=== PATIENT | male | born 1960 | race African-American/Black ===

== ENCOUNTER 2019-05-08 15:31 | Inpatient (IN) | payer OTHER ==
[2019-05-08 16:58] VITALS: BMI 20.8
--- NOTE | 2019-05-08 20:25 | PN ---
[facility] Progress Note Note: Patient with medical history of asthma is seeking admission to detox from Alcohol. Patient is febrile and reports that he is coughing up yellowish sputum with intermittent chest pain. Patient is being transferred to ER for evaluation. Endorsed to Dr. Sigala
--- NOTE | 2019-05-09 02:01 | HP ---
CIWA Score - Admission Criteria OASAS Guidelines: Admission for Medically Managed Detox: Requires at least one of the followin. CIWA greater than 12 2. Seizures within the past 24 hours 3. Delirium tremens within the past 24 hours 4. Hallucinations within the past 24 hours 5. Acute intervention needed for co occurring medical disorder 6. Acute intervention needed for co occurring psychiatric disorder 7. Severe withdrawal that cannot be handled at a lower level of care (continued vomiting, continued diarrhea, abnormal vital signs) requiring intravenous medication and/or fluids 8. Admitting History and Physical - Smoking History Smoking history: Current every day smoker Have you smoked in the past 12 months: Yes Aproximately how many cigarettes per day: 10 - Alcohol/Substance Use Hx Alcohol Use: Yes Admission ROS [facility] - [facility] Chief Complaint: Seeking admission to Rehab. Allergies/Adverse Reactions: Allergies Allergy/AdvReac Type Severity Reaction Status Date / Time Penicillins Allergy Severe Hives Verified 05/08/19 16:48 History of Present Illness: 59 years old male with a long history of alcohol dependence ( since age 6 years ) is seeking admission to Rehab. Patient was last admitted to [facility] for the period 12/03/2013 - 12/30/2018. He reports that his last Rehab. was [facility] in [place]. He has medical history of asthma, GERD and reports psych. history of Bipolar disorder and depression. He reports suicide attempt in 2002, 2008 and denies suicidal ideation at this time. Patient had cough, was febrile and reported that he was coughing yellowish sputum. He stated that he did not take the flu shot. He was sent to ER for further evaluation. Influenza A and B rapid test was negative. Exam Limitations: No Limitations - Ebola screening Have you traveled outside of the country in the last 21 days: No (N) Have you had contact with anyone from an Ebola affected area: No Do you have a fever: No - Review of Systems Constitutional: No Symptoms Reported EENT: reports: No Symptoms Reported Respiratory: reports: No Symptoms reported Cardiac: reports: No Symptoms Reported GI: reports: No Symptoms Reported : reports: No Symptoms Reported Musculoskeletal: reports: No Symptoms Reported Integumentary: reports: No Symptoms Reported Neuro: reports: No Symptoms reported Endocrine: reports: No Symptoms Reported Hematology: reports: No Symptoms Reported Psychiatric: reports: Mood/Affect Appropiate, Orientated x3 Other Systems: Reviewed and Negative Patient History - Patient Medical History Hx Anemia: No Hx Asthma: Yes (Proventil inhaler) Hx Chronic Obstructive Pulmonary Disease (COPD): No Hx Cancer: No Hx Cardiac Disorders: No Hx Congestive Heart Failure: No Hx Hypertension: No Hx Hypercholesterolemia: No Hx Pacemaker: No HX Cerebrovascular Accident: No Hx Seizures: No Hx Dementia: No Hx Diabetes: No Hx Gastrointestinal Disorders: No Hx Liver Disease: No Hx Genitourinary Disorders: No Hx Sexually Transmitted Disorders: No Hx Renal Disease (ESRD): No Hx Thyroid Disease: No Hx Human Immunodeficiency Virus (HIV): No (neg 2 months ago) Hx Hepatitis C: No Hx Depression: Yes (bipolar) Hx Suicide Attempt: Yes (2002; tried to jump off bridge; hospitalized x 1 month) Hx Bipolar Disorder: Yes (diagnosed in 2002; has taken depakote, seroquel in the past) Hx Schizophrenia: No - Patient Surgical History Past Surgical History: Yes Hx Neurologic Surgery: No Hx Cataract Extraction: No Hx Cardiac Surgery: No Hx Lung Surgery: No Hx Abdominal Surgery: No Hx Appendectomy: No Hx Cholecystectomy: No Hx Genitourinary Surgery: No Hx Section: Yes Hx Orthopedic Surgery: No Other Surgical History: R wrist; work related injury; cut tendons, nerves and arteries; scar noted Anesthesia Reaction: No - PPD History Previous Implant?: Yes Documented Results: Negative w/o proof Implanted On Prior [facility] Admission?: Yes Date: 12/05/13 Results: 0mm PPD to be Administered?: Yes - Reproductive History Patient is a Female of Child Bearing Age (11 -55 yrs old): No (male) - Smoking Cessation Smoking history: Current every day smoker Have you smoked in the past 12 months: Yes Aproximately how many cigarettes per day: 10 Hx Chewing Tobacco Use: No Initiated information on smoking cessation: Yes 'Breaking Loose' booklet given: 05/09/19 - Substance & Tx. History Hx Alcohol Use: Yes Hx Substance Use: Yes Substance Use Type: Alcohol, Cocaine Hx [facility] - Substances abused Alcohol Substance route: Oral Frequency: Daily Amount used: liquor- 4 pints, beer- 1 six pack Age of first use: 5 Date of last use: 05/06/19 Crack Substance route: Smoking Frequency: 3-6 times per week Amount used: $60 worth Age of first use: 40 Date of last use: 05/06/19 Admission Physical Exam [facility] - Vital Signs Vital Signs: Vital Signs - 24 hr 05/08/19 05/08/19 16:43 17:23 Temperature 101.6 F H 101.6 F H Pulse Rate 94 H 94 H Respiratory 20 20 Rate Blood Pressure 142/80 142/80 - Physical General Appearance: Yes: Within Normal Limits HEENTM: Yes: Within Normal Limits Respiratory: Yes: Lungs Clear, Normal Breath Sounds, No Respiratory Distress Neck: Yes: Within Normal Limits Breast: Yes: Breast Exam Deferred Cardiology: Yes: Regular Rhythm, Regular Rate Abdominal: Yes: Normal Bowel Sounds Genitourinary: Yes: Within Normal Limits Back: Yes: Normal Inspection Musculoskeletal: Yes: Within Normal Limits Extremities: Yes: Normal Inspection, Normal Range of Motion Neurological: Yes: Within Normal Limits, Alert, Normal Mood/Affect Integumentary: Yes: Warm Lymphatic: Yes: Within Normal Limits - Diagnostic (1) Alcohol dependence Current Visit: No Status: Acute (2) Asthma Current Visit: No Status: Acute (3) Cocaine dependence Current Visit: No Status: Acute (4) GERD (gastroesophageal reflux disease) Current Visit: No Status: Acute (5) Nicotine dependence Current Visit: No Status: Acute Cleared for Admission [facility] - Detox or Rehab [facility] Level of Care: Observation Bed Claeared for Rehab Admission: Yes Breathalyzer - Breathalyzer Breathalyzer: 0 Urine Drug Screen - Test Device Lot number: [id number] Expiration date: 01/31/21 - Control Is test valid?: Yes - Results Drug screen NEGATIVE: No Urine drug screen results: MAIK-Cocaine Inpatient Rehab Admission - Rehab Decision to Admit Inpatient rehab admission?: Yes - Initial Determination Are CD services needed?: No Free of communicable disease: Yes Not in need of hospitalization: Yes - Rehab Admission Criteria Previous failed treatment: Yes Poor recovery environment: Yes Comorbidities: Yes Lacks judgement: No Patient is meeting Inpatient Rehab admission criteria:: Yes
[2019-05-09] MEDS ORDERED: MAGNESIUM HYDROX 2400MG/30ML ORAL SUSPENSION 30 ML CUP PO PRN (02:28)
[2019-05-09] MEDS ORDERED: MENTHOL/PHENOL 1 EACH UD MM PRN (02:28)
[2019-05-09] MEDS ORDERED: MAGNESIUM CITRATE 300 ML BOTTLE PO PRN (02:28)
[2019-05-09] MEDS ORDERED: NICOTINE POLACRILEX 2 MG GUM BUC PRN (02:28)
[2019-05-09] MEDS ORDERED: P-EPHED 60MG/TRIPROLIDI 2.5MG TABLET PO PRN (02:28)
[2019-05-09] MEDS ORDERED: TUBERCULIN PPD 5 TU/0.1ML VIAL ID ONE (03:27)
--- NOTE | 2019-05-09 08:18 | CONSULT ---
[facility] Psychiatric Consult - Data Date of interview: 05/09/19 Admission source: Self-referred Identifying data: Mr Mikel Rain is a 59 years old single Black male, father of 7 children, unemployed receiving SSD, domiciled admitted to this unit on 05/08/19 for inpatient rehabilitation for alcohol and cocaine Substance Abuse History: Reports history of alcohol and crack cocaine use. Refer to addiction counselor's summary for further information Medical History: Significant for bronchal asthma, GERD and surgery for tendon, nerve and artery repair right wrist. Smokes 10 cigarettes daily Psychiatric History: Reports that his first psychiatric contact was in 2002- 2003 for experiencing racing thought and anger. He saw an outpatient psychiatrist at the [facility], diagnosed with Bipolar Disorder and started on Depakote. Reports that he has been receiving outpatient psychiatric treatment since. Reports that his most recent psychiatric treatment was while at the [facility] inpatient substance abuse program in [place]. He was on Depakote 750 mg/hs and Trazadone 150 mg/hs. He said that he completed the program on 05/05/19 and relapsed soon after. Reports two previous psychiatric hospitalizations at [facility] in [place] for trying to jump off a bridge and another facility in [place](not sure it it was [facility]). At present, denies experiencing psychotic, manic or depressive symptoms, S/H ideations. However, reports sleeping poorly without medications. Physical/Sexual Abuse/Trauma History: Denies history of abuse as a child or DV relationship as an adult Mental Status Exam - Mental Status Exam Alert and Oriented to: Time, Place, Person Cognitive Function: Fair Patient Appearance: Disheveled Mood: Hopeful, Euthymic Affect: Appropriate Patient Behavior: Cooperative Speech Pattern: Clear Thought Process: Intact Hallucinations: Denies Suicidal Ideation: Denies Homicidal Ideation: Denies Insight/Judgement: Fair Sleep: Poorly Appetite: Good Muscle strength/Tone: Normal Gait/Station: Normal Psychiatric Findings - Problem List ([place] 1, 2,3) (1) Bipolar disorder Current Visit: Yes Status: Chronic (2) Substance-induced sleep disorder Current Visit: Yes Status: Acute (3) Alcohol dependence Current Visit: No Status: Acute (4) Cocaine dependence Current Visit: Yes Status: Acute (5) Nicotine dependence Current Visit: No Status: Chronic (6) Asthma Current Visit: No Status: Chronic (7) GERD (gastroesophageal reflux disease) Current Visit: No Status: Chronic - Initial Treatment Plan Initial Treatment Plan: 1) Continue Depakote 750 mg po HS and Trazadone 150 mg po HS. 2) Depakote serum level on 05/16/19. 3) Continue inpatient rehabilitation
[2019-05-09 09:58] LABS: HEMATOCRIT 45.8 % (35.4-49); HEMOGLOBIN 15.1 GM/dL (11.7-16.9); MCHC 33.1 g/dl (32.0-35.9); MEAN CELL VOLUME 87.8 fl (80-96); MEAN PLT VOLUME 8.5 fl (7.5-11.1); PLATELET COUNT 167 K/MM3 (134-434); RBC 5.22 M/mm3 (4.00-5.60); RDW 14.8 % (11.9-15.9); WHITE BLOOD COUNT 4.7 K/mm3 (4.0-10.0)
[2019-05-09 09:59] LABS: ALBUMIN 3.6 g/dl (3.4-5.0); BILIRUBIN,TOTAL 0.4 mg/dL (0.2-1); BLOOD UREA NITROGEN 14.5 mg/dL (7-18); CALCIUM 8.7 mg/dL (8.5-10.1); CREATININE 1.3 mg/dL (0.55-1.3); TOT PROT 7.2 g/dl (6.4-8.2)
--- NOTE | 2019-05-09 10:08 | EKG ---
Test Reason : Blood Pressure : / mmHG Vent. Rate : 062 BPM Atrial Rate : 062 BPM P-R Int : 138 ms QRS Dur : 084 ms QT Int : 422 ms P-R-T Axes : 078 052 043 degrees QTc Int : 428 ms NORMAL SINUS RHYTHM POSSIBLE LEFT ATRIAL ENLARGEMENT BORDERLINE ECG NO PREVIOUS ECGS AVAILABLE Confirmed by BAILEY CASTRO, NORMAN ([id number]) on 05/09/2019 10:08:35 AM Referred By: Minh Enriquez Confirmed By:NORMAN AVALOS MD
[2019-05-09] MEDS: PRENATAL VITAMINS W/ FOLIC ACID TABLET (FP) PO SCH (10:52)
[2019-05-09] MEDS: BUDESONIDE/FORMETEROL FUMARATE 80/4.5 mcg INHALER IH SCH ×2 (10:52→21:23)
[2019-05-09] MEDS: NICOTINE 14 MG/24 HOURS TOPICAL PATCH TD SCH (10:52)
[2019-05-09] MEDS: guaiFENesin 200 MG/10 ML 10 ML UNIT-DOSE CUPS PO PRN ×2 (10:55→16:54)
--- NOTE | 2019-05-09 11:32 | PN ---
[facility] Progress Note Note: PATIENT ADMITTED TO REHAB FOR ALCOHOL/COCAINE DEPENDENCE. CLEARED FROM [facility] AFTER BEING SENT FOR EVALUATION OF FEVER. INFLUENZA/CXR NEGATIVE. UA PENDING. CBC NORMAL. Vital Signs Temperature 98.3 F 05/09/19 07:33 Pulse Rate 72 05/09/19 07:33 Respiratory Rate 18 05/09/19 07:33 Blood Pressure 119/74 05/09/19 07:33 O2 Sat by Pulse Oximetry (%) Laboratory Tests 05/09/19 05/09/19 05/09/19 08:12 08:12 08:12 WBC 4.7 RBC 5.22 Hgb 15.1 Hct 45.8 MCV 87.8 MCH 29.0 MCHC 33.1 RDW 14.8 Plt Count 167 D MPV 8.5 Sodium 136 Potassium 4.0 Chloride 100 Carbon Dioxide 27 Anion Gap 9 BUN 14.5 Creatinine 1.3 Est GFR (CKD-EPI)AfAm 68.25 Est GFR (CKD-EPI)NonAf 58.89 Random Glucose 231 H Calcium 8.7 Total Bilirubin 0.4 AST 62 H ALT 53 Alkaline Phosphatase 62 Total Protein 7.2 Albumin 3.6 RPR Titer Nonreactive ROS: DENIES CHEST PAIN, SOB, COUGH AND FEVER/CHILLS PE: ALERT AND ORIENTED X 3 SKIN WARM AND DRY CAR S1S2 RESP CTA BL EXT FULL ROM, AMB AD ANANTH A/P: ETOH/MAIK DEPENDENCE CONTINUE REHAB SERVICES PSYCH EVALUATION PENDING MONITOR CLINICALLY
[2019-05-09 17:13] LABS: EPI CELLS 0.3 /HPF (0-5/HPF); HYALINE CASTS 1 /lpf (0-8); PH,URINE 5.5 (5.0-8.0); URINE APPEARANCE CLOUDY; URINE BACTERIA 2.2 /hpf (NEGATIVE); URINE BILIRUBIN NEGATIVE (NEGATIVE); URINE COLOR YELLOW; URINE GLUCOSE (UA) NEGATIVE (NEGATIVE); URINE KETONE NEGATIVE (NEGATIVE); URINE LEUK ESTERASE NEGATIVE (NEGATIVE); URINE NITRITE NEGATIVE (NEGATIVE); URINE PROTEIN TRACE (NEGATIVE); URINE RBC 5 /hpf (0-4); URINE UROBILINOGEN 0.2 mg/dL (0.2-1.0); URINE WBC 1 /hpf (0-5)
[2019-05-09] MEDS: THIAMINE HCL 100 MG TABLET (FP) PO SCH (21:23)
[2019-05-09] MEDS ORDERED: DIVALPROEX SODIUM 250 MG TABLET E.C. ONE (21:24)
[2019-05-09] MEDS ORDERED: DIVALPROEX SODIUM 500 MG TABLET E.C. ONE (21:24)
[2019-05-09] MEDS: DIVALPROEX 500 MG, DIVALPROEX 250 MG PO SCH (21:25)
[2019-05-09] MEDS: MELATONIN 5 MG TABLETS PO PRN (21:25)
[2019-05-09] MEDS: traZODone HCL 50 MG TABLET (FP) PO SCH (21:25)
[2019-05-09] MEDS ORDERED: DIVALPROEX SODIUM 250 MG TABLET E.C. PO SCH (22:00)
[2019-05-09] MEDS ORDERED: DIVALPROEX SODIUM 500 MG TABLET E.C. PO SCH (22:00)
[2019-05-10] MEDS: PRENATAL VITAMINS W/ FOLIC ACID TABLET (FP) PO SCH (10:10)
[2019-05-10] MEDS: IBUPROFEN 400 MG TABLET (FP) PO PRN ×2 (10:11→21:21)
[2019-05-10] MEDS: BUDESONIDE/FORMETEROL FUMARATE 80/4.5 mcg INHALER IH SCH ×2 (10:12→21:20)
[2019-05-10] MEDS: ALBUTEROL SO4 HFA INHALER IH PRN (10:13)
[2019-05-10] MEDS: NICOTINE 14 MG/24 HOURS TOPICAL PATCH TD SCH (10:13)
[2019-05-10] MEDS: guaiFENesin 200 MG/10 ML 10 ML UNIT-DOSE CUPS PO PRN ×2 (10:14→21:22)
[2019-05-10] MEDS ORDERED: DIVALPROEX SODIUM 500 MG TABLET E.C. ONE (19:39)
[2019-05-10] MEDS ORDERED: DIVALPROEX SODIUM 250 MG TABLET E.C. ONE (19:39)
[2019-05-10] MEDS: traZODone HCL 50 MG TABLET (FP) PO SCH (21:20)
[2019-05-10] MEDS: DIVALPROEX 500 MG, DIVALPROEX 250 MG PO SCH (21:20)
[2019-05-10] MEDS: MELATONIN 5 MG TABLETS PO PRN (21:20)
[2019-05-10] MEDS: THIAMINE HCL 100 MG TABLET (FP) PO SCH (21:20)
[2019-05-11] MEDS: IBUPROFEN 400 MG TABLET (FP) PO PRN (06:23)
[2019-05-11] MEDS: guaiFENesin 200 MG/10 ML 10 ML UNIT-DOSE CUPS PO PRN ×2 (06:23→15:35)
[2019-05-11] MEDS: PRENATAL VITAMINS W/ FOLIC ACID TABLET (FP) PO SCH (10:39)
[2019-05-11] MEDS: BUDESONIDE/FORMETEROL FUMARATE 80/4.5 mcg INHALER IH SCH ×2 (10:40→21:13)
[2019-05-11] MEDS: NICOTINE 14 MG/24 HOURS TOPICAL PATCH TD SCH (10:40)
[2019-05-11] MEDS: ALBUTEROL SO4 HFA INHALER IH PRN (10:40)
[2019-05-11] MEDS: ACETAMINOPHEN 325 MG TABLET (FP) PO PRN (15:34)
[2019-05-11] MEDS ORDERED: DIVALPROEX SODIUM 500 MG TABLET E.C. ONE (18:36)
[2019-05-11] MEDS ORDERED: DIVALPROEX SODIUM 250 MG TABLET E.C. ONE (18:36)
[2019-05-11] MEDS: THIAMINE HCL 100 MG TABLET (FP) PO SCH (21:13)
[2019-05-11] MEDS: traZODone HCL 50 MG TABLET (FP) PO SCH (21:13)
[2019-05-11] MEDS: MELATONIN 5 MG TABLETS PO PRN (21:13)
[2019-05-11] MEDS: DIVALPROEX 500 MG, DIVALPROEX 250 MG PO SCH (21:13)
[2019-05-12] MEDS: IBUPROFEN 400 MG TABLET (FP) PO PRN (06:18)
[2019-05-12] MEDS: PRENATAL VITAMINS W/ FOLIC ACID TABLET (FP) PO SCH (10:06)
[2019-05-12] MEDS: BUDESONIDE/FORMETEROL FUMARATE 80/4.5 mcg INHALER IH SCH ×2 (10:07→21:24)
[2019-05-12] MEDS: NICOTINE 14 MG/24 HOURS TOPICAL PATCH TD SCH (10:07)
[2019-05-12] MEDS: ALBUTEROL SO4 HFA INHALER IH PRN (10:07)
--- NOTE | 2019-05-12 14:09 | PN ---
[facility] Progress Note Note: Patient reports sleeping poorly despite taking Trazadone 150 mg/hs and Melatonin 5 mg/hs. Melatonin dosage was just increased to 10 mg/hs by Dr Enriquez. Will increase Trazadone dosage to 200 mg/hs
[2019-05-12] MEDS: MAG HYDROX/AL HYDROX/SIMETH 30 ML UNIT-DOSE CUP PO PRN (15:44)
[2019-05-12] MEDS ORDERED: DIVALPROEX SODIUM 250 MG TABLET E.C. ONE (18:29)
[2019-05-12] MEDS ORDERED: DIVALPROEX SODIUM 500 MG TABLET E.C. ONE (18:29)
[2019-05-12] MEDS: DIVALPROEX 500 MG, DIVALPROEX 250 MG PO SCH (21:22)
[2019-05-12] MEDS: MELATONIN 5 MG TABLETS PO SCH (21:22)
[2019-05-12] MEDS: THIAMINE HCL 100 MG TABLET (FP) PO SCH (21:22)
[2019-05-12] MEDS: traZODone HCL 100 MG TABLET (FP) PO SCH (21:23)
[2019-05-13] MEDS: PRENATAL VITAMINS W/ FOLIC ACID TABLET (FP) PO SCH (09:39)
[2019-05-13] MEDS: ALBUTEROL SO4 HFA INHALER IH PRN (09:40)
[2019-05-13] MEDS: BUDESONIDE/FORMETEROL FUMARATE 80/4.5 mcg INHALER IH SCH ×2 (09:40→21:40)
[2019-05-13] MEDS: NICOTINE 14 MG/24 HOURS TOPICAL PATCH TD SCH (09:40)
[2019-05-13] MEDS ORDERED: DIVALPROEX SODIUM 250 MG TABLET E.C. ONE (19:24)
[2019-05-13] MEDS ORDERED: DIVALPROEX SODIUM 500 MG TABLET E.C. ONE (19:24)
[2019-05-13] MEDS: DIVALPROEX 500 MG, DIVALPROEX 250 MG PO SCH (21:10)
[2019-05-13] MEDS: THIAMINE HCL 100 MG TABLET (FP) PO SCH (21:10)
[2019-05-13] MEDS: traZODone HCL 100 MG TABLET (FP) PO SCH (21:10)
[2019-05-13] MEDS: MELATONIN 5 MG TABLETS PO SCH (21:11)
[2019-05-14] MEDS: NICOTINE 14 MG/24 HOURS TOPICAL PATCH TD SCH (09:27)
[2019-05-14] MEDS: PRENATAL VITAMINS W/ FOLIC ACID TABLET (FP) PO SCH (09:27)
[2019-05-14] MEDS: BUDESONIDE/FORMETEROL FUMARATE 80/4.5 mcg INHALER IH SCH ×2 (09:27→21:09)
[2019-05-14] MEDS: ACETAMINOPHEN 325 MG TABLET (FP) PO PRN (10:04)
[2019-05-14] MEDS ORDERED: DIVALPROEX SODIUM 500 MG TABLET E.C. ONE (19:27)
[2019-05-14] MEDS ORDERED: DIVALPROEX SODIUM 250 MG TABLET E.C. ONE (19:27)
[2019-05-14] MEDS: THIAMINE HCL 100 MG TABLET (FP) PO SCH (21:08)
[2019-05-14] MEDS: traZODone HCL 100 MG TABLET (FP) PO SCH (21:08)
[2019-05-14] MEDS: MELATONIN 5 MG TABLETS PO SCH (21:08)
[2019-05-14] MEDS: DIVALPROEX 500 MG, DIVALPROEX 250 MG PO SCH (21:08)
[2019-05-14] MEDS ORDERED: PT OWN MED DRAWER 7, Y5N ONE (21:10)
[2019-05-15] MEDS: BUDESONIDE/FORMETEROL FUMARATE 80/4.5 mcg INHALER IH SCH ×2 (09:55→21:00)
[2019-05-15] MEDS: NICOTINE 14 MG/24 HOURS TOPICAL PATCH TD SCH (09:55)
[2019-05-15] MEDS: PRENATAL VITAMINS W/ FOLIC ACID TABLET (FP) PO SCH (09:55)
[2019-05-15] MEDS: ACETAMINOPHEN 325 MG TABLET (FP) PO PRN (11:29)
[2019-05-15] MEDS ORDERED: DIVALPROEX SODIUM 250 MG TABLET E.C. ONE (18:43)
[2019-05-15] MEDS ORDERED: DIVALPROEX SODIUM 500 MG TABLET E.C. ONE (18:43)
[2019-05-15] MEDS: traZODone HCL 100 MG TABLET (FP) PO SCH (21:00)
[2019-05-15] MEDS: MELATONIN 5 MG TABLETS PO SCH (21:00)
[2019-05-15] MEDS: DIVALPROEX 500 MG, DIVALPROEX 250 MG PO SCH (21:00)
[2019-05-15] MEDS: THIAMINE HCL 100 MG TABLET (FP) PO SCH (21:00)
[2019-05-16] MEDS: LOPERAMIDE HCL 2 MG CAPSULE PO PRN ×2 (04:53→11:31)
[2019-05-16] MEDS: NICOTINE 14 MG/24 HOURS TOPICAL PATCH TD SCH (10:42)
[2019-05-16] MEDS: PRENATAL VITAMINS W/ FOLIC ACID TABLET (FP) PO SCH (10:55)
[2019-05-16] MEDS: BUDESONIDE/FORMETEROL FUMARATE 80/4.5 mcg INHALER IH SCH ×2 (10:55→21:20)
[2019-05-16] MEDS: MAG HYDROX/AL HYDROX/SIMETH 30 ML UNIT-DOSE CUP PO PRN (20:11)
[2019-05-16] MEDS ORDERED: DIVALPROEX SODIUM 500 MG TABLET E.C. ONE (20:26)
[2019-05-16] MEDS ORDERED: DIVALPROEX SODIUM 250 MG TABLET E.C. ONE (20:26)
[2019-05-16] MEDS: DIVALPROEX 500 MG, DIVALPROEX 250 MG PO SCH (21:18)
[2019-05-16] MEDS: THIAMINE HCL 100 MG TABLET (FP) PO SCH (21:18)
[2019-05-16] MEDS: MELATONIN 5 MG TABLETS PO SCH (21:18)
[2019-05-16] MEDS: traZODone HCL 100 MG TABLET (FP) PO SCH (21:19)
[2019-05-17] MEDS: NICOTINE 14 MG/24 HOURS TOPICAL PATCH TD SCH (09:57)
[2019-05-17] MEDS: PRENATAL VITAMINS W/ FOLIC ACID TABLET (FP) PO SCH (09:58)
[2019-05-17] MEDS: BUDESONIDE/FORMETEROL FUMARATE 80/4.5 mcg INHALER IH SCH ×2 (09:58→21:21)
[2019-05-17] MEDS: ACETAMINOPHEN 325 MG TABLET (FP) PO PRN ×2 (09:58→19:48)
[2019-05-17] MEDS ORDERED: DIVALPROEX SODIUM 250 MG TABLET E.C. ONE (19:03)
[2019-05-17] MEDS ORDERED: DIVALPROEX SODIUM 500 MG TABLET E.C. ONE (19:03)
[2019-05-17] MEDS: THIAMINE HCL 100 MG TABLET (FP) PO SCH (21:21)
[2019-05-17] MEDS: traZODone HCL 100 MG TABLET (FP) PO SCH (21:21)
[2019-05-17] MEDS: MELATONIN 5 MG TABLETS PO SCH (21:21)
[2019-05-17] MEDS: DIVALPROEX 500 MG, DIVALPROEX 250 MG PO SCH (21:21)
[2019-05-18] MEDS: IBUPROFEN 400 MG TABLET (FP) PO PRN (10:20)
[2019-05-18] MEDS: PRENATAL VITAMINS W/ FOLIC ACID TABLET (FP) PO SCH (10:20)
[2019-05-18] MEDS: ALBUTEROL SO4 HFA INHALER IH PRN (10:21)
[2019-05-18] MEDS: NICOTINE 14 MG/24 HOURS TOPICAL PATCH TD SCH (10:21)
[2019-05-18] MEDS: BUDESONIDE/FORMETEROL FUMARATE 80/4.5 mcg INHALER IH SCH ×2 (10:21→21:15)
[2019-05-18] MEDS ORDERED: DIVALPROEX SODIUM 250 MG TABLET E.C. ONE (19:09)
[2019-05-18] MEDS ORDERED: DIVALPROEX SODIUM 500 MG TABLET E.C. ONE (19:09)
[2019-05-18] MEDS: DIVALPROEX 500 MG, DIVALPROEX 250 MG PO SCH (21:15)
[2019-05-18] MEDS: traZODone HCL 100 MG TABLET (FP) PO SCH (21:15)
[2019-05-18] MEDS: MELATONIN 5 MG TABLETS PO SCH (21:15)
[2019-05-18] MEDS: THIAMINE HCL 100 MG TABLET (FP) PO SCH (21:15)
[2019-05-19] MEDS: NICOTINE 14 MG/24 HOURS TOPICAL PATCH TD SCH (09:40)
[2019-05-19] MEDS: BUDESONIDE/FORMETEROL FUMARATE 80/4.5 mcg INHALER IH SCH ×2 (09:40→21:22)
[2019-05-19] MEDS: PRENATAL VITAMINS W/ FOLIC ACID TABLET (FP) PO SCH (09:40)
[2019-05-19] MEDS: ALBUTEROL SO4 HFA INHALER IH PRN (09:41)
[2019-05-19] MEDS: ACETAMINOPHEN 325 MG TABLET (FP) PO PRN (13:23)
[2019-05-19] MEDS ORDERED: DIVALPROEX SODIUM 250 MG TABLET E.C. ONE (19:14)
[2019-05-19] MEDS ORDERED: DIVALPROEX SODIUM 500 MG TABLET E.C. ONE (19:14)
[2019-05-19] MEDS: MELATONIN 5 MG TABLETS PO SCH (21:22)
[2019-05-19] MEDS: THIAMINE HCL 100 MG TABLET (FP) PO SCH (21:22)
[2019-05-19] MEDS: traZODone HCL 100 MG TABLET (FP) PO SCH (21:22)
[2019-05-19] MEDS: DIVALPROEX 500 MG, DIVALPROEX 250 MG PO SCH (21:22)
[2019-05-19] MEDS: MAG HYDROX/AL HYDROX/SIMETH 30 ML UNIT-DOSE CUP PO PRN (21:23)
[2019-05-20] MEDS: PRENATAL VITAMINS W/ FOLIC ACID TABLET (FP) PO SCH (10:13)
[2019-05-20] MEDS: ACETAMINOPHEN 325 MG TABLET (FP) PO PRN (10:14)
[2019-05-20] MEDS: BUDESONIDE/FORMETEROL FUMARATE 80/4.5 mcg INHALER IH SCH ×2 (10:14→21:14)
[2019-05-20] MEDS: ALBUTEROL SO4 HFA INHALER IH PRN (10:16)
[2019-05-20] MEDS: NICOTINE 14 MG/24 HOURS TOPICAL PATCH TD SCH (10:16)
[2019-05-20] MEDS ORDERED: DIVALPROEX SODIUM 250 MG TABLET E.C. ONE (19:14)
[2019-05-20] MEDS ORDERED: DIVALPROEX SODIUM 500 MG TABLET E.C. ONE (19:14)
[2019-05-20] MEDS: MELATONIN 5 MG TABLETS PO SCH (21:13)
[2019-05-20] MEDS: THIAMINE HCL 100 MG TABLET (FP) PO SCH (21:13)
[2019-05-20] MEDS: traZODone HCL 100 MG TABLET (FP) PO SCH (21:13)
[2019-05-20] MEDS: DIVALPROEX 500 MG, DIVALPROEX 250 MG PO SCH (21:14)
[2019-05-21] MEDS: BUDESONIDE/FORMETEROL FUMARATE 80/4.5 mcg INHALER IH SCH ×2 (10:22→21:29)
[2019-05-21] MEDS: NICOTINE 14 MG/24 HOURS TOPICAL PATCH TD SCH (10:23)
[2019-05-21] MEDS: ALBUTEROL SO4 HFA INHALER IH PRN ×2 (10:23→21:29)
[2019-05-21] MEDS: PRENATAL VITAMINS W/ FOLIC ACID TABLET (FP) PO SCH (10:23)
[2019-05-21] MEDS: ACETAMINOPHEN 325 MG TABLET (FP) PO PRN ×2 (10:24→21:31)
[2019-05-21] MEDS ORDERED: DIVALPROEX SODIUM 500 MG TABLET E.C. ONE (19:32)
[2019-05-21] MEDS ORDERED: DIVALPROEX SODIUM 250 MG TABLET E.C. ONE (19:33)
[2019-05-21] MEDS: traZODone HCL 100 MG TABLET (FP) PO SCH (21:28)
[2019-05-21] MEDS: MELATONIN 5 MG TABLETS PO SCH (21:28)
[2019-05-21] MEDS: THIAMINE HCL 100 MG TABLET (FP) PO SCH (21:28)
[2019-05-21] MEDS: DIVALPROEX 500 MG, DIVALPROEX 250 MG PO SCH (21:29)
[2019-05-22] MEDS: ACETAMINOPHEN 325 MG TABLET (FP) PO PRN ×2 (10:01→21:41)
[2019-05-22] MEDS: PRENATAL VITAMINS W/ FOLIC ACID TABLET (FP) PO SCH (10:01)
[2019-05-22] MEDS: ALBUTEROL SO4 HFA INHALER IH PRN (10:02)
[2019-05-22] MEDS: BUDESONIDE/FORMETEROL FUMARATE 80/4.5 mcg INHALER IH SCH ×2 (10:02→21:39)
[2019-05-22] MEDS: NICOTINE 14 MG/24 HOURS TOPICAL PATCH TD SCH (10:40)
[2019-05-22] MEDS ORDERED: DIVALPROEX SODIUM 500 MG TABLET E.C. ONE (20:28)
[2019-05-22] MEDS ORDERED: DIVALPROEX SODIUM 250 MG TABLET E.C. ONE (20:29)
[2019-05-22] MEDS: traZODone HCL 100 MG TABLET (FP) PO SCH (21:39)
[2019-05-22] MEDS: THIAMINE HCL 100 MG TABLET (FP) PO SCH (21:40)
[2019-05-22] MEDS: MELATONIN 5 MG TABLETS PO SCH (21:40)
[2019-05-22] MEDS: DIVALPROEX 500 MG, DIVALPROEX 250 MG PO SCH (21:40)
[2019-05-23] MEDS: PRENATAL VITAMINS W/ FOLIC ACID TABLET (FP) PO SCH (10:10)
[2019-05-23] MEDS: ACETAMINOPHEN 325 MG TABLET (FP) PO PRN ×2 (10:10→21:26)
[2019-05-23] MEDS: ALBUTEROL SO4 HFA INHALER IH PRN (10:11)
[2019-05-23] MEDS: BUDESONIDE/FORMETEROL FUMARATE 80/4.5 mcg INHALER IH SCH ×2 (10:11→21:25)
[2019-05-23] MEDS: NICOTINE 14 MG/24 HOURS TOPICAL PATCH TD SCH (10:40)
[2019-05-23] MEDS ORDERED: DIVALPROEX SODIUM 500 MG TABLET E.C. ONE (19:05)
[2019-05-23] MEDS ORDERED: DIVALPROEX SODIUM 250 MG TABLET E.C. ONE (19:06)
[2019-05-23] MEDS: THIAMINE HCL 100 MG TABLET (FP) PO SCH (21:25)
[2019-05-23] MEDS: MELATONIN 5 MG TABLETS PO SCH (21:25)
[2019-05-23] MEDS: traZODone HCL 100 MG TABLET (FP) PO SCH (21:25)
[2019-05-23] MEDS: DIVALPROEX 500 MG, DIVALPROEX 250 MG PO SCH (21:25)
[2019-05-24] MEDS: ALBUTEROL SO4 HFA INHALER IH PRN (09:59)
[2019-05-24] MEDS: NICOTINE 14 MG/24 HOURS TOPICAL PATCH TD SCH (09:59)
[2019-05-24] MEDS: BUDESONIDE/FORMETEROL FUMARATE 80/4.5 mcg INHALER IH SCH ×2 (09:59→21:18)
[2019-05-24] MEDS: PRENATAL VITAMINS W/ FOLIC ACID TABLET (FP) PO SCH (09:59)
[2019-05-24] MEDS: ACETAMINOPHEN 325 MG TABLET (FP) PO PRN ×2 (10:00→18:02)
[2019-05-24] MEDS ORDERED: DIVALPROEX SODIUM 500 MG TABLET E.C. ONE (19:30)
[2019-05-24] MEDS ORDERED: DIVALPROEX SODIUM 250 MG TABLET E.C. ONE (19:30)
[2019-05-24] MEDS: MELATONIN 5 MG TABLETS PO SCH (21:17)
[2019-05-24] MEDS: THIAMINE HCL 100 MG TABLET (FP) PO SCH (21:17)
[2019-05-24] MEDS: DIVALPROEX 500 MG, DIVALPROEX 250 MG PO SCH (21:17)
[2019-05-24] MEDS: traZODone HCL 100 MG TABLET (FP) PO SCH (21:18)
[2019-05-25] MEDS: ACETAMINOPHEN 325 MG TABLET (FP) PO PRN ×2 (09:43→21:21)
[2019-05-25] MEDS: PRENATAL VITAMINS W/ FOLIC ACID TABLET (FP) PO SCH (09:43)
[2019-05-25] MEDS: BUDESONIDE/FORMETEROL FUMARATE 80/4.5 mcg INHALER IH SCH ×2 (09:44→21:23)
[2019-05-25] MEDS: ALBUTEROL SO4 HFA INHALER IH PRN (09:44)
[2019-05-25] MEDS: NICOTINE 14 MG/24 HOURS TOPICAL PATCH TD SCH (09:44)
[2019-05-25] MEDS ORDERED: DIVALPROEX SODIUM 250 MG TABLET E.C. ONE (19:28)
[2019-05-25] MEDS ORDERED: DIVALPROEX SODIUM 500 MG TABLET E.C. ONE (19:28)
[2019-05-25] MEDS: DIVALPROEX 500 MG, DIVALPROEX 250 MG PO SCH (21:20)
[2019-05-25] MEDS: traZODone HCL 100 MG TABLET (FP) PO SCH (21:20)
[2019-05-25] MEDS: MELATONIN 5 MG TABLETS PO SCH (21:20)
[2019-05-25] MEDS: THIAMINE HCL 100 MG TABLET (FP) PO SCH (21:21)
[2019-05-26] MEDS: ACETAMINOPHEN 325 MG TABLET (FP) PO PRN ×2 (09:52→21:40)
[2019-05-26] MEDS: PRENATAL VITAMINS W/ FOLIC ACID TABLET (FP) PO SCH (09:52)
[2019-05-26] MEDS: BUDESONIDE/FORMETEROL FUMARATE 80/4.5 mcg INHALER IH SCH ×2 (09:53→21:39)
[2019-05-26] MEDS: NICOTINE 14 MG/24 HOURS TOPICAL PATCH TD SCH (09:54)
[2019-05-26] MEDS: ALBUTEROL SO4 HFA INHALER IH PRN (09:54)
[2019-05-26] MEDS ORDERED: DIVALPROEX SODIUM 250 MG TABLET E.C. ONE (20:58)
[2019-05-26] MEDS ORDERED: DIVALPROEX SODIUM 500 MG TABLET E.C. ONE (20:58)
[2019-05-26] MEDS: DIVALPROEX 500 MG, DIVALPROEX 250 MG PO SCH (21:39)
[2019-05-26] MEDS: THIAMINE HCL 100 MG TABLET (FP) PO SCH (21:39)
[2019-05-26] MEDS: MELATONIN 5 MG TABLETS PO SCH (21:40)
[2019-05-26] MEDS: traZODone HCL 100 MG TABLET (FP) PO SCH (21:40)
[2019-05-27] MEDS: NICOTINE 14 MG/24 HOURS TOPICAL PATCH TD SCH (10:02)
[2019-05-27] MEDS: ACETAMINOPHEN 325 MG TABLET (FP) PO PRN ×2 (10:09→21:21)
[2019-05-27] MEDS: ALBUTEROL SO4 HFA INHALER IH PRN (10:09)
[2019-05-27] MEDS: PRENATAL VITAMINS W/ FOLIC ACID TABLET (FP) PO SCH (10:09)
[2019-05-27] MEDS: BUDESONIDE/FORMETEROL FUMARATE 80/4.5 mcg INHALER IH SCH ×2 (10:09→21:20)
[2019-05-27] MEDS ORDERED: DIVALPROEX SODIUM 500 MG TABLET E.C. ONE (19:24)
[2019-05-27] MEDS ORDERED: DIVALPROEX SODIUM 250 MG TABLET E.C. ONE (19:25)
[2019-05-27] MEDS: traZODone HCL 100 MG TABLET (FP) PO SCH (21:19)
[2019-05-27] MEDS: THIAMINE HCL 100 MG TABLET (FP) PO SCH (21:19)
[2019-05-27] MEDS: MELATONIN 5 MG TABLETS PO SCH (21:19)
[2019-05-27] MEDS: DIVALPROEX 500 MG, DIVALPROEX 250 MG PO SCH (21:20)
[2019-05-28] MEDS: NICOTINE 14 MG/24 HOURS TOPICAL PATCH TD SCH (09:21)
[2019-05-28] MEDS: ACETAMINOPHEN 325 MG TABLET (FP) PO PRN ×2 (09:21→21:28)
[2019-05-28] MEDS: PRENATAL VITAMINS W/ FOLIC ACID TABLET (FP) PO SCH (09:21)
[2019-05-28] MEDS: BUDESONIDE/FORMETEROL FUMARATE 80/4.5 mcg INHALER IH SCH ×2 (09:21→21:28)
[2019-05-28] MEDS ORDERED: DIVALPROEX SODIUM 500 MG TABLET E.C. ONE (19:08)
[2019-05-28] MEDS ORDERED: DIVALPROEX SODIUM 250 MG TABLET E.C. ONE (19:09)
[2019-05-28] MEDS: MELATONIN 5 MG TABLETS PO SCH (21:28)
[2019-05-28] MEDS: DIVALPROEX 500 MG, DIVALPROEX 250 MG PO SCH (21:28)
[2019-05-28] MEDS: traZODone HCL 100 MG TABLET (FP) PO SCH (21:28)
[2019-05-28] MEDS: THIAMINE HCL 100 MG TABLET (FP) PO SCH (21:28)
[2019-05-29] MEDS: BUDESONIDE/FORMETEROL FUMARATE 80/4.5 mcg INHALER IH SCH ×2 (09:42→21:48)
[2019-05-29] MEDS: NICOTINE 14 MG/24 HOURS TOPICAL PATCH TD SCH (09:42)
[2019-05-29] MEDS: PRENATAL VITAMINS W/ FOLIC ACID TABLET (FP) PO SCH (09:42)
[2019-05-29] MEDS: ACETAMINOPHEN 325 MG TABLET (FP) PO PRN ×2 (09:42→21:16)
[2019-05-29] MEDS ORDERED: DIVALPROEX SODIUM 500 MG TABLET E.C. ONE (19:07)
[2019-05-29] MEDS ORDERED: DIVALPROEX SODIUM 250 MG TABLET E.C. ONE (19:07)
[2019-05-29] MEDS: traZODone HCL 100 MG TABLET (FP) PO SCH (21:15)
[2019-05-29] MEDS: THIAMINE HCL 100 MG TABLET (FP) PO SCH (21:16)
[2019-05-29] MEDS: MELATONIN 5 MG TABLETS PO SCH (21:16)
[2019-05-29] MEDS: DIVALPROEX 500 MG, DIVALPROEX 250 MG PO SCH (21:16)
[2019-05-30] MEDS: PRENATAL VITAMINS W/ FOLIC ACID TABLET (FP) PO SCH (09:55)
[2019-05-30] MEDS: ACETAMINOPHEN 325 MG TABLET (FP) PO PRN ×2 (09:55→21:07)
[2019-05-30] MEDS: BUDESONIDE/FORMETEROL FUMARATE 80/4.5 mcg INHALER IH SCH ×2 (09:56→21:04)
[2019-05-30] MEDS: ALBUTEROL SO4 HFA INHALER IH PRN (09:56)
[2019-05-30] MEDS: NICOTINE 14 MG/24 HOURS TOPICAL PATCH TD SCH (10:59)
[2019-05-30] MEDS ORDERED: DIVALPROEX SODIUM 500 MG TABLET E.C. ONE (20:35)
[2019-05-30] MEDS ORDERED: DIVALPROEX SODIUM 250 MG TABLET E.C. ONE (20:36)
[2019-05-30] MEDS: DIVALPROEX 500 MG, DIVALPROEX 250 MG PO SCH (21:04)
[2019-05-30] MEDS: traZODone HCL 100 MG TABLET (FP) PO SCH (21:05)
[2019-05-30] MEDS: THIAMINE HCL 100 MG TABLET (FP) PO SCH (21:05)
[2019-05-30] MEDS: MELATONIN 5 MG TABLETS PO SCH (21:05)
[2019-05-31] MEDS: NICOTINE 14 MG/24 HOURS TOPICAL PATCH TD SCH (09:48)
[2019-05-31] MEDS: BUDESONIDE/FORMETEROL FUMARATE 80/4.5 mcg INHALER IH SCH ×2 (09:48→21:23)
[2019-05-31] MEDS: PRENATAL VITAMINS W/ FOLIC ACID TABLET (FP) PO SCH (09:48)
[2019-05-31] MEDS: ACETAMINOPHEN 325 MG TABLET (FP) PO PRN ×2 (09:49→21:22)
[2019-05-31] MEDS ORDERED: DIVALPROEX SODIUM 500 MG TABLET E.C. ONE (19:17)
[2019-05-31] MEDS ORDERED: DIVALPROEX SODIUM 250 MG TABLET E.C. ONE (19:17)
[2019-05-31] MEDS: traZODone HCL 100 MG TABLET (FP) PO SCH (21:22)
[2019-05-31] MEDS: THIAMINE HCL 100 MG TABLET (FP) PO SCH (21:22)
[2019-05-31] MEDS: MELATONIN 5 MG TABLETS PO SCH (21:22)
[2019-05-31] MEDS: DIVALPROEX 500 MG, DIVALPROEX 250 MG PO SCH (21:22)
[2019-06-01] MEDS: ACETAMINOPHEN 325 MG TABLET (FP) PO PRN ×2 (09:30→21:14)
[2019-06-01] MEDS: PRENATAL VITAMINS W/ FOLIC ACID TABLET (FP) PO SCH (09:30)
[2019-06-01] MEDS: BUDESONIDE/FORMETEROL FUMARATE 80/4.5 mcg INHALER IH SCH ×2 (09:31→21:14)
[2019-06-01] MEDS: ALBUTEROL SO4 HFA INHALER IH PRN (09:31)
[2019-06-01] MEDS: NICOTINE 14 MG/24 HOURS TOPICAL PATCH TD SCH (09:32)
--- NOTE | 2019-06-01 11:31 | PN ---
[facility] Progress Note Note: Patient is scheduled for discharge tomorrow. Scripts for 30 days supply of medications(Depakote 750 mg/hs, Trazadone 200 mg/hs) will be electronically transmitted to [facility] at [address] [place] [address]
--- NOTE | 2019-06-01 15:29 | DS ---
[facility] Rehab Discharge Summary - [facility] Rehab Discharge Summary Admission Date: 05/09/19 Discharge Date: 06/01/19 - History Present History: Alcohol dependence, Cocaine dependence Pertinent Past History: 59 years old male with a long history of alcohol dependence ( since age 6 years) . Patient was last admitted to [facility] for the period 12/03/2013 - 12/30/2018. He has medical history of asthma, GERD and reports psych. history of Bipolar disorder and depression. He reports suicide attempt in 2002, 2008 and denies suicidal ideation at this time. - Discharge Physical Exam Vital Signs: Vital Signs Temperature 97.6 F 06/01/19 07:58 Pulse Rate 61 06/01/19 07:58 Respiratory Rate 18 06/01/19 07:58 Blood Pressure 104/66 06/01/19 07:58 O2 Sat by Pulse Oximetry (%) Pertinent Admission Physical Exam Findings: Physical General Appearance: no apparent distress HEENTM: normocephalic Respiratory: Lungs Clear, Cardiology: s1 s2 Abdominal: +Bowel Sounds Musculoskeletal: full weight bearing, steady gait Neurological: CN 2-12 intact - Treatment Discharge Condition: Outpatient referral accepted (Medically stable for discharge. Patient will go to the [facility] for aftercare) Hospital Course: Patient attended groups, had 1:1 with his counselor, was seen by psychiatric service. He had upper respiratory symptoms upon admission and [facility]. Symptoms resolved, he was treated symptomatically - Medication Discharge Medications: Ambulatory Orders Divalproex [Depakote -] 2,000 mg PO HS 12/07/13 Tiotropium Beasley [Spiriva] 18 mcg IH DAILY 12/07/13 Ranitidine [Zantac -] 150 mg PO DAILY #60 tablet 12/29/13 Trazodone HCl 150 mg PO HS 05/08/19 Albuterol Sulfate Inhaler - [Ventolin HFA Inhaler -] 1 - 2 inh IH Q4H PRN #1 inh 06/01/19 Budesonide/Formeterol Fumarate [SYMBICORT 80/4.5mcg -] 2 inh IH BID #1 inhaler 06/01/19 Divalproex [Depakote -] 750 mg PO HS #90 tablet.ec 06/01/19 Ibuprofen [Motrin -] 400 mg PO Q6H PRN #30 tablet 06/01/19 traZODone HCL [Desyrel -] 200 mg PO HS #60 tablet 06/01/19 - Medication-Assisted Treatment (MAT) Medication-Assisted Treatment (MAT): No - Discharge Instructions Diet, activity, other medical instructions: Diet: as tolerated Activity: as tolerated Other medical instructions: Please follow up with aftercare referral - Diagnosis (1) Cocaine dependence Current Visit: Yes Status: Chronic (2) Alcohol dependence Current Visit: No Status: Chronic - Follow-up Referral Minutes to complete discharge: 20 - AMA Did Patient Leave Against Medical Advice: No
[2019-06-01] MEDS ORDERED: DIVALPROEX SODIUM 500 MG TABLET E.C. ONE (19:19)
[2019-06-01] MEDS ORDERED: DIVALPROEX SODIUM 250 MG TABLET E.C. ONE (19:19)
[2019-06-01] MEDS: MELATONIN 5 MG TABLETS PO SCH (21:14)
[2019-06-01] MEDS: THIAMINE HCL 100 MG TABLET (FP) PO SCH (21:14)
[2019-06-01] MEDS: DIVALPROEX 500 MG, DIVALPROEX 250 MG PO SCH (21:14)
[2019-06-01] MEDS: traZODone HCL 100 MG TABLET (FP) PO SCH (21:14)
[2019-06-02 06:58] VITALS: BP 115/72; PULSE 67; TEMP 98.3
[2019-06-02] MEDS: ACETAMINOPHEN 325 MG TABLET (FP) PO PRN (09:10)
[2019-06-02] MEDS: PRENATAL VITAMINS W/ FOLIC ACID TABLET (FP) PO SCH (09:10)
== END 2019-06-02 09:08 | disposition home or self-care (01) | DRG 895 ==
LOC: YASAS 15:31 → Y3W 05-09 02:16
PROVIDERS: ADMIT Allergy & Immunology; ATTEND Allergy & Immunology
PROC: HZ42ZZZ Group Counseling for Substance Abuse Treatment, Cognitive-Behavioral (ICD-10-PCS; principal; 2019-05-09)
DX: F10.20 Alcohol dependence, uncomplicated (principal); F14.20 Cocaine dependence, uncomplicated; F17.210 Nicotine dependence, cigarettes, uncomplicated; F31.9 Bipolar disorder, unspecified; J45.909 Unspecified asthma, uncomplicated; K21.9 Gastro-esophageal reflux disease without esophagitis; Z88.0 Allergy status to penicillin; Z91.5 Personal history of self-harm
CPT/HCPCS: 36415; 71046-TC-FY; 80053; 81003; 82962; 85027; 86593; 87804; 93005; 93010; 99281-25; J1100